=== PATIENT | male | born 1985 | race Caucasian/White ===

== ENCOUNTER 2016-11-14 20:44 | Emergency (ER) | payer OTHER ==
[2016-11-14 21:35] VITALS: BP 118/75; PULSE 78; RESP 18; TEMP 98.7; O2SAT 99
--- NOTE | 2016-11-14 21:57 | ED PDOC ---
Lower Extremity Pain/Injury Time Seen by Provider: 11/14/16 21:40 Chief Complaint (Nursing): Lower Extremity Problem/Injury Chief Complaint (Provider): Foreign Body History Per: Patient History/Exam Limitations: no limitations Onset/Duration Of Symptoms: Days (x 4) Current Symptoms Are (Timing): Still Present Additional Complaint(s): Patient reports that there has been broken glass in his house since , and has had sensation of foreign body in left foot ever since. PMD: None Provided Past Medical History Reviewed: Historical Data, Nursing Documentation, Vital Signs Vital Signs: Last Vital Signs Temp 98.7 F 11/14/16 21:32 Pulse 78 11/14/16 21:32 Resp 18 11/14/16 21:32 BP 118/75 11/14/16 21:32 Pulse Ox 99 11/14/16 21:32 - Surgical History Surgical History: Tonsillectomy - Family History Family History: States: Unknown Family Hx - Home Medications Home Medications: Ambulatory Orders Medication Instructions Recorded Cephalexin [Keflex] 500 mg PO QID #28 capsule 11/14/16 - Allergies Allergies/Adverse Reactions: Allergies Allergy/AdvReac Type Severity Reaction Status Date / Time No Known Allergies Allergy Verified 11/14/16 21:32 Review of Systems ROS Statement: Except As Marked, All Systems Reviewed And Found Negative Musculoskeletal: Positive for: Other (Sense of foreign body in foot) Physical Exam - Reviewed Nursing Documentation Reviewed: Yes Vital Signs Reviewed: Yes - Physical Exam Appears: Positive for: Well, Non-toxic, No Acute Distress Head Exam: Positive for: ATRAUMATIC, NORMAL INSPECTION, NORMOCEPHALIC Extremity: Positive for: Normal ROM. Negative for: Pedal Edema - ECG O2 Sat by Pulse Oximetry: 99 - Progress ED Course And Treament: FOOT XRY: NO FOREIGN BODY NOTED. XRY REVIEWED WITH DR. LEWIS Medical Decision Making Medical Decision Making: Time: 9:40 Initial Plan: --XR Foot Scribe Attestation: Documented by Colby Macedo, acting as a scribe for Ismael Sanchez PA-C Provider Scribe Attestation: All medical record entries made by the Scribe were at my direction and personally dictated by me. I have reviewed the chart and agree that the record accurately reflects my personal performance of the history, physical exam, medical decision making, and the department course for this patient. I have also personally directed, reviewed, and agree with the discharge instructions and disposition. Disposition - Clinical Impression Clinical Impression: Sensation of foreign body in foot - Patient ED Disposition Is Patient to be Admitted: No - Disposition Referrals: Podiatry Clinic [Outside] Eufemia Bonner DPM [Staff Provider] - Disposition: Routine/Home Disposition Time: 22:47 Condition: FAIR Prescriptions: Cephalexin [Keflex] 500 mg PO QID #28 capsule Instructions: Soft Tissue Foreign Body (ED) Forms: [employer] (B[place]hi)
--- NOTE | 2016-11-15 08:44 | RAD ---
PROCEDURE: Left Foot Radiographs. HISTORY: Unspecified left foot injury COMPARISON: None. FINDINGS: BONES: Normal. No fracture. JOINTS: Normal. SOFT TISSUES: Normal. OTHER FINDINGS: None. IMPRESSION: No acute findings related to/accounting for the clinical presentation. Please note: No preliminary report/ innterpretation of this examination provided by emergency department personnel.
== END 2016-11-14 23:20 | disposition home or self-care (01) ==
LOC: H.ER 20:44
DX: S90.852A Superficial foreign body, left foot, initial encounter (principal); X58.XXXA Exposure to other specified factors, initial encounter; Y93.9 Activity, unspecified; Y92.009 Unspecified place in unspecified non-institutional (private) residence as the place of occurrence of the external cause